=== PATIENT | female | born 1990 | race Caucasian/White ===

== ENCOUNTER 2017-01-08 18:55 | Emergency (ER) | payer MEDICARE, MEDICAID ==
[2017-01-08] MEDS ORDERED: IOPAMIDOL 300 (61%) 100 ML VIAL IV ONE (18:56)
[2017-01-08] MEDS ORDERED: MORPHINE SULFATE 4 MG/ML SYRINGE ONE (19:41)
[2017-01-08] MEDS ORDERED: ONDANSETRON 4 MG/2ML 2 ML VIAL ONE (19:41)
[2017-01-08] MEDS ORDERED: SODIUM CHLORIDE 0.9% 1,000 ML ONE (19:41)
[2017-01-08 19:54] LABS: ABSOLUTE NEUTROPHIL COUNT 5.6 K/mm3 (1.8-7.7); BASO # 0.1 K/mm3 (0.0-0.2); BASO % 0.5 % (0.2-1.0); EOS # 0.2 (0.0-0.5); EOS % 1.8 % (0.9-2.9); HEMATOCRIT 40.9 % (37.0-47.0); HEMOGLOBIN 13.7 gm/l (12.0-16.0); IMM NEUT% 0.3 % (0-1); LYMPH # 3.8 (1.0-4.8); LYMPH % 37.3 % (15-45); MEAN CELL VOLUME 90.9 fl (81.0-99.0); MEAN CORPUSCULAR HEMOGLOBIN 30.4 pg (27.0-31.0); MEAN CORPUSCULAR HGB CONC 33.5 g/dl (33.0-37.0); MEAN PLATELET VOLUME 10.7 fl (7.4-10.4); MONO # 0.6 (0.0-0.8); MONO % 5.7 % (4-12); NEUT % 54.4 % (43-75); PLATELET COUNT 225 K/mm3 (130-400); RED CELL DISTRIBUTION WIDTH 13.2 % (11.5-14.5)
[2017-01-08 20:12] LABS: ALB/GLOB RATIO 1.5 (>1.0); CALCIUM 9.2 mg/dL (8.6-10.3)
[2017-01-08 20:17] LABS: PH,URINE 6.5 (5.0-8.0); URINE BILIRUBIN NEGATIVE (NEGATIVE); URINE BLOOD NEGATIVE (NEGATIVE); URINE GLUCOSE (UA) 3+ (NEGATIVE); URINE LEUKOCYTE ESTERASE NEGATIVE (NEGATIVE); URINE NITRITE NEGATIVE (NEGATIVE); URINE PROTEIN NEGATIVE (NEGATIVE); URINE UROBILINOGEN NORMAL (0-1 mg/dl)
[2017-01-08 20:18] LABS: URINE APPEARANCE CLEAR; URINE COLOR YELLOW
[2017-01-08 20:21] LABS: HCG,QUALITATIVE URINE NEGATIVE
--- NOTE | 2017-01-08 20:56 | CT ---
Name: NELL ROJAS Exam: CT abdomen pelvis with contrast Comparison: 03/07/2013 History: Right lower quadrant pain Procedure: Helical CT using multidetector technique was applied to the abdomen and pelvis during intravenous administration of 100 cc Isovue 300. No oral contrast was given per ordering physician. An automated dose reduction technique was used to minimize patient radiation dose. Findings: CT abdomen (contrast enhanced): There is mild basilar atelectasis. Heart is not enlarged. There is no pericardial effusion. Liver is normal size and homogeneous. Gallbladder is not distended. Pancreas is unremarkable. Within the normal sized spleen, there are many granulomas. Adrenal glands, kidneys, aorta, IVC, portal vein are normal. There is moderate food within the stomach. There is moderate stool within the colon. Small bowel is not dilated. There is no free air, free fluid or suspicious adenopathy. Regional skeleton is unremarkable. CT pelvis (contrast enhanced): Bladder is thick-walled. Cystitis is not excluded on this exam. Normal size uterus is deviated to the right. Ovaries are symmetric. There is a surgical clip in the right hemipelvis compatible with prior right tubal ligation. The clip/staple for the left ligation is not present in the pelvis but is seen to be in the left mid abdomen compatible with a migrated clip. Position is unchanged from CT dated 03/07/2013. There is moderate stool within the colon. Small bowel is unremarkable. The appendix is well seen and is normal. There is no free air, free fluid or suspicious adenopathy. Impression: 1. Normal appendix 2. Thick walled bladder. Cystitis is not excluded. 3. Obstipation 4. Prior granulomatous infection 5. Findings compatible with a migrated left tubal ligation clip in the left mid abdomen. Position is unchanged from CT dated 03/07/2013 Note: The above report was uploaded to [facility]'s electronic medical records system at 2048 hours.
[2017-01-08] MEDS ORDERED: KETOROLAC TROMETHAMINE 30 MG/ML 1 ML VIAL ONE (21:10)
[2017-01-08 21:48] LABS: ACETONE,SERUM NEGATIVE (NEGATIVE)
== END 2017-01-08 22:17 | disposition home or self-care (01) ==
LOC: ED 18:55
DX: E11.65 Type 2 diabetes mellitus with hyperglycemia (principal); R11.10 Vomiting, unspecified; R10.2 Pelvic and perineal pain; Z79.4 Long term (current) use of insulin
CPT/HCPCS: 83690; 81025; 82009; 85025; 80053; 81003; 74177; 96375 ×2; 99283 ×2; 96374; 82962 ×2; J2270; J1885; J2405; J7030; Q9967